=== PATIENT | female | born 1965 | race Caucasian/White ===

== ENCOUNTER 2025-07-04 18:47 | Inpatient (IN) | payer BC ==
[~2025-07-04] VITALS: Ht 162.6 cm; Wt 68.0 kg
[2025-07-04 19:02] VITALS: O2SAT 97
[2025-07-04] MEDS: SODIUM CHLORIDE 0.9% (SEPSIS BOLUS) IV ONE (19:50)
[2025-07-04] MEDS: CEFTRIAXONE 1GM/50ML 50 ML IV ONE (19:51)
[2025-07-04 20:05] LABS: BASOPHILS % 0.3 % (0.0-2.0); EOSINOPHILS % 0.5 % (0.0-5.0); HEMATOCRIT. 40.1 % (36.0-48.0); HEMOGLOBIN. 13.3 g/dL (12.0-16.0); LYMPHOCYTES % 20.6 % (20.0-50.0); MEAN PLATELET VOLUME 8.2 fl (7.4-10.4); MONOCYTES % 6.8 % (2.0-8.0); NEUTROPHILS % 71.8 % (40.0-76.0); PLATELET 317 x1000/uL (130-400); RED BLOOD CELL COUNT 4.51 mill/uL (4.2-5.4); RED CELL DISTRIBUTION WIDTH 13.4 % (11.6-14.6)
[2025-07-04] MEDS: ACETAMINOPHEN 500MG TABLET PO ONE (20:09)
[2025-07-04] MEDS: LOPERAMIDE HCL 2MG CAPSULE PO ONE (20:10)
[2025-07-04 20:14] LABS: CREATININE 0.9 mg/dL (0.6-1.0); INR 1.0; UREA NITROGEN BLOOD 10 mg/dL (9-23)
[2025-07-04 20:15] LABS: PROTEIN TOTAL 8.4 g/dL (6.0-8.3); TROPONIN I HIGH SENSITIVITY < 4 ng/L (3.0-34)
[2025-07-04 20:16] LABS: ASPARTATE AMINOTRANSFERASE 16 IU/L (<34); BILIRUBIN DIRECT 0.2 mg/dL (<=3.0)
[2025-07-04 20:17] LABS: BILIRUBIN TOTAL 0.7 mg/dL (0.1-1.0)
[2025-07-04] MEDS: AZITHROMYCIN 500MG/250ML 250 ML IV ONE (21:41)
[2025-07-04 22:25] LABS: INFLUENZA TYPE A Presumptive Negative (Pres. Neg.)
[2025-07-04 22:26] LABS: INFLUENZA TYPE B Presumptive Negative (Pres. Neg.); RESPIRATORY SYNCYTIAL VIRUS Not Detected (Not Detectd)
[2025-07-04] MEDS: METRONIDAZOLE 500 MG PREMIX 100 ML IV ONE (22:44)
[2025-07-04] MEDS ORDERED: MAGNESIUM/ALUMINUM HYDROXIDE/SIMETHICONE 30ML UDC PO PRN (23:30)
[2025-07-04] MEDS ORDERED: KETOROLAC 15MG/ML VIAL IV PRN (23:30)
[2025-07-04] MEDS ORDERED: MORPHINE SULFATE 2 MG/ML INJ (NOT FOR IM USE) IV PRN (23:30)
[2025-07-04] MEDS ORDERED: ACETAMINOPHEN 325MG TABLET PO PRN ×2 (23:30)
[2025-07-04] MEDS ORDERED: IPRATROPIUM/ALBUTEROL 0.5-3(2.5)MG/3ML NEB HHN PRN (23:30)
[2025-07-04] MEDS ORDERED: CLONIDINE 0.1MG TABLET PO PRN (23:30)
[2025-07-04] MEDS ORDERED: GUAIFENESIN 200MG/10ML SUGAR FREE UDC PO PRN (23:30)
[2025-07-04] MEDS ORDERED: ONDANSETRON HCL 4MG/2ML INJ IV PRN (23:30)
[2025-07-04] MEDS ORDERED: DOCUSATE SODIUM 100MG CAPSULE PO PRN (23:30)
[2025-07-05 00:08] VITALS: BP 129/81; PULSE 85; RESP 18; TEMP 36.3068
[2025-07-05 00:39] LABS: PHOSPHORUS 4.3 mg/dL (2.5-4.9)
[2025-07-05] MEDS: PANTOPRAZOLE SODIUM 40 MG/VIAL IV SCH (01:05)
[2025-07-05] MEDS: MAGNESIUM 2 G PREMIX 50 ML IV NR (01:05)
[2025-07-05] MEDS: METRONIDAZOLE 500 MG PREMIX 100 ML IV SCH (01:06)
[2025-07-05] MEDS: AZTREONAM 2 GM in DEXT 5% WATER 100 ML IV SCH ×2 (01:07→09:35)
[2025-07-05] MEDS: DEXT 5%/LACTATED RINGERS 1,000 ML IV SCH (01:08)
[2025-07-05 06:58] LABS: BASOPHILS % 0.2 % (0.0-2.0); EOSINOPHILS % 1.6 % (0.0-5.0); HEMATOCRIT. 37.0 % (36.0-48.0); HEMOGLOBIN. 12.3 g/dL (12.0-16.0); LYMPHOCYTES % 26.1 % (20.0-50.0); MEAN PLATELET VOLUME 8.5 fl (7.4-10.4); MONOCYTES % 8.4 % (2.0-8.0); NEUTROPHILS % 63.7 % (40.0-76.0); PLATELET 266 x1000/uL (130-400); RED BLOOD CELL COUNT 4.14 mill/uL (4.2-5.4); RED CELL DISTRIBUTION WIDTH 13.6 % (11.6-14.6)
[2025-07-05 07:12] LABS: PROTEIN TOTAL 7.4 g/dL (6.0-8.3); TRIGLYCERIDE 80 mg/dL (0-150)
[2025-07-05 07:12] LABS: CREATINE KINASE MB FRACTION < 0.5 ng/mL (0.5-3.6)
[2025-07-05 07:13] LABS: CREATININE 0.7 mg/dL (0.6-1.0)
[2025-07-05 07:14] LABS: LDL CHOLESTEROL 66 mg/dL (5-100); UREA NITROGEN BLOOD 7 mg/dL (9-23)
[2025-07-05 07:15] LABS: ASPARTATE AMINOTRANSFERASE 13 IU/L (<34); BILIRUBIN DIRECT 0.2 mg/dL (<=3.0); PHOSPHORUS 3.7 mg/dL (2.5-4.9)
[2025-07-05 07:15] LABS: PROTEIN TOTAL 7.6 g/dL (6.0-8.3)
[2025-07-05 07:16] LABS: BILIRUBIN TOTAL 0.7 mg/dL (0.1-1.0); T4 FREE 1.23 ng/dL (0.89-1.76)
[2025-07-05 07:17] LABS: ASPARTATE AMINOTRANSFERASE 16 IU/L (<34); BILIRUBIN DIRECT 0.2 mg/dL (<=3.0); BILIRUBIN TOTAL 0.7 mg/dL (0.1-1.0)
[2025-07-05 08:00] VITALS: BP 121/84; PULSE 82; RESP 20; TEMP 36.8; O2SAT 97
[2025-07-05] MEDS: ENOXAPARIN 40MG/0.4ML SYR SUBCUT SCH (08:49)
[2025-07-05 09:24] LABS: TROPONIN I HIGH SENSITIVITY < 4 ng/L (3.0-34)
[2025-07-05 12:00] VITALS: BP 118/63; PULSE 88; RESP 20; TEMP 36.5; O2SAT 96
[2025-07-05] MEDS ORDERED: DEXTROSE 50% WATER 50ML SYRINGE IV PRN ×2 (15:00)
[2025-07-05 16:00] VITALS: BP 120/67; PULSE 86; RESP 2; TEMP 36.6; O2SAT 98
[2025-07-05 17:08] LABS: CLARITY URINE CLEAR (CLEAR); COLOR URINE YELLOW (YELLOW); GLUCOSE URINE NEGATIVE (NEGATIVE); KETONES URINE NEGATIVE (NEGATIVE); LEUKOCYTE ESTERASE URINE TRACE (NEGATIVE); NITRITE URINE NEGATIVE (NEGATIVE); OCCULT BLOOD URINE NEGATIVE (NEGATIVE); PH URINE 6.5 (4.5-8.0); PROTEIN URINE NEGATIVE (NEGATIVE); SPECIFIC GRAVITY URINE 1.009 (1.005-1.030); UROBILINOGEN URINE 0.2 E.U./dL (0.2-1.0)
[2025-07-05] MEDS ORDERED: BLOOD SUGAR DIAGNOSTIC STRIP TEST SCH (17:10)
[2025-07-05] MEDS: BLOOD SUGAR DIAGNOSTIC STRIP TEST SCH (17:11)
[2025-07-05] MEDS: MULTIVITAMINS,THER W-MINERALS TABLET PO SCH (17:12)
[2025-07-05] MEDS: LEVOFLOXACIN 750MG PREMIX 150 ML IV SCH (17:13)
[2025-07-05 17:15] LABS: *AMPHETAMINES SCREEN URINE NEGATIVE (NEGATIVE); *BARBITURATES SCREEN URINE NEGATIVE (NEGATIVE); *BENZODIAZEPINES SCREEN URINE NEGATIVE (NEGATIVE); *COCAINE SCREEN URINE NEGATIVE (NEGATIVE); CANNABINOID URINE SCREEN NEGATIVE (NEGATIVE); ECSTASY MDMA SCREEN URINE NEGATIVE (NEGATIVE); METHADONE URINE SCREEN NEGATIVE (NEGATIVE); OPIATES URINE SCREEN NEGATIVE (NEGATIVE); PHENCYCLIDINE URINE SCREEN NEGATIVE (NEGATIVE)
[2025-07-05 18:13] LABS: BACTERIA URINE NONE SEEN; RBC URINE NONE SEEN /hpf (0-2); SQUAMOUS EPITHELIAL CELL URINE NONE SEEN /lpf (RARE/1+); WBC URINE NONE SEEN /hpf (0-2); YEAST URINE NONE SEEN
[2025-07-05 20:00] VITALS: BP 128/73; PULSE 93; RESP 18; TEMP 36.4; O2SAT 98
[2025-07-05 20:05] LABS: CREATINE KINASE MB FRACTION < 0.5 ng/mL (0.5-3.6); TROPONIN I HIGH SENSITIVITY < 4 ng/L (3.0-34)
[2025-07-05] MEDS: THIAMINE HCL 100 MG in SODIUM CHLORIDE 0.9% 50 ML IV NR (20:28)
[2025-07-06] VITALS: BP 143/98; PULSE 96; RESP 18; TEMP 36.1; O2SAT 99
[2025-07-06 04:00] VITALS: BP 138/70; PULSE 77; RESP 20; TEMP 36.9; O2SAT 97
[2025-07-06 08:00] VITALS: BP 121/70; PULSE 76; RESP 18; TEMP 37; O2SAT 99
[2025-07-06 08:06] LABS: BASOPHILS % 0.3 % (0.0-2.0); EOSINOPHILS % 3.1 % (0.0-5.0); HEMATOCRIT. 36.0 % (36.0-48.0); HEMOGLOBIN. 12.3 g/dL (12.0-16.0); LYMPHOCYTES % 31.4 % (20.0-50.0); MEAN PLATELET VOLUME 8.0 fl (7.4-10.4); MONOCYTES % 9.7 % (2.0-8.0); NEUTROPHILS % 55.5 % (40.0-76.0); PLATELET 268 x1000/uL (130-400); RED BLOOD CELL COUNT 4.11 mill/uL (4.2-5.4); RED CELL DISTRIBUTION WIDTH 13.1 % (11.6-14.6)
[2025-07-06 08:24] LABS: CREATININE 0.6 mg/dL (0.6-1.0); UREA NITROGEN BLOOD 6 mg/dL (9-23)
[2025-07-06 08:25] LABS: PROTEIN TOTAL 7.3 g/dL (6.0-8.3)
[2025-07-06 08:26] LABS: ASPARTATE AMINOTRANSFERASE 12 IU/L (<34); BILIRUBIN DIRECT 0.1 mg/dL (<=3.0)
[2025-07-06 08:27] LABS: BILIRUBIN TOTAL 0.4 mg/dL (0.1-1.0); PHOSPHORUS 3.5 mg/dL (2.5-4.9)
[2025-07-06 12:00] VITALS: BP 132/82; PULSE 82; RESP 19; TEMP 36.4; O2SAT 98
[2025-07-06] MEDS ORDERED: LEVO750T68 MT (15:40)
[2025-07-06] MEDS ORDERED: METR-167 MT (15:40)
[2025-07-06 16:00] VITALS: BP 124/76; PULSE 76; RESP 20; TEMP 36.2; O2SAT 99
[2025-07-06 19:47] VITALS: BP 132/75; PULSE 94; RESP 18; TEMP 98
[2025-07-06] MEDS ORDERED: METRONIDAZOLE 500MG TABLET PO SCH (22:00)
[2025-07-07] MEDS ORDERED: LEVOFLOXACIN 250MG TABLET PO SCH (15:00)
[2025-07-07] MEDS ORDERED: LEVO750T68 MT (18:06)
== END 2025-07-06 20:15 | disposition home or self-care (01) | DRG 872 ==
LOC: ER 18:47 → 8WST 22:02 → EDBEDREQ 22:53 → EDBEDREQTM 22:53 → ENRESERV 23:16
PROVIDERS: ADMIT Student in an Organized Health Care Education/Training Program; ATTEND Student in an Organized Health Care Education/Training Program
DX: A41.9 Sepsis, unspecified organism (principal); E66.9 Obesity, unspecified; K57.32 Diverticulitis of large intestine without perforation or abscess without bleeding; I10 Essential (primary) hypertension; K76.0 Fatty (change of) liver, not elsewhere classified; E83.42 Hypomagnesemia; Z20.822 Contact with and (suspected) exposure to COVID-19; R73.03 Prediabetes; R73.9 Hyperglycemia, unspecified; E78.5 Hyperlipidemia, unspecified; Z68.25 Body mass index [BMI] 25.0-25.9, adult; Z88.0 Allergy status to penicillin; Z79.899 Other long term (current) drug therapy
CPT/HCPCS: 36415; 71045; 74176; 80048; 80061; 80076; 80305; 81003; 82550; 82553; 82962; 83036; 83605; 83735; 83880; 84100; 84145; 84439; 84443; 84484; 85025; 87420; 87426; 87804; 93005; 99285; A4606; J0456; J0696; J1650; J1956; J2470; J3411; J3475; J3490; J7030; J7060